=== PATIENT | female | born 1975 ===

== ENCOUNTER 2018-03-24 18:14 | Emergency (ER) | payer OTHER, BC ==
[2018-03-24 18:38] VITALS: RESP 18
[2018-03-24] MEDS ORDERED: Naproxen 500 MG TAB PO ONE ×2 (18:48→19:04)
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
[2018-03-24 20:41] VITALS: BP 120/72; PULSE 79; TEMP 98
[2018-03-24 21:44] VITALS: O2SAT 98
--- NOTE | 2018-03-25 09:45 | RAD ---
Date of service: 03/24/2018 PROCEDURE: Radiographs of the Sacrum and Coccyx HISTORY: pain COMPARISON: None available. TECHNIQUE: Frontal and lateral views of the sacrum and coccyx FINDINGS: BONES: Sacrum and coccyx unremarkable. No fracture or focal lesion. SACROILIAC JOINTS: Unremarkable. OTHER FINDINGS: None. IMPRESSION: Unremarkable radiographs of the sacrum and coccyx.
--- NOTE | 2018-03-25 09:47 | RAD ---
Date of service: 03/24/2018 PROCEDURE: Radiographs of the Lumbar Spine. HISTORY: pain COMPARISON: No prior. FINDINGS: BONES: No malalignment is seen. Mild endplate changes are noted. Disc spaces are well maintained. No significant facet hypertrophy is seen. Lower thoracic spine is unremarkable. Visualized sacroiliac joints are unremarkable. Pedicles are intact. Minimal scoliosis is noted. DISC SPACES: See above OTHER FINDINGS: None. IMPRESSION: Minor degenerative changes. No fracture.
== END 2018-03-24 20:40 | disposition home or self-care (01) ==
LOC: H.ER 18:14
DX: M54.5 Low back pain (principal); V43.52XA Car driver injured in collision with other type car in traffic accident, initial encounter; Y92.410 Unspecified street and highway as the place of occurrence of the external cause